=== PATIENT | male | born 1980 | race Two or more races ===

== ENCOUNTER 2021-04-22 04:41 | Emergency (ER) | payer SELFPAY ==
[~2021-04-22] VITALS: Ht 170.2 cm; Wt 80.9 kg
[2021-04-22] MEDS ORDERED: PROPARACAINE HCL 0.5% 15 ML OPHTHALMIC SOLUTION OU ONE (04:45)
[2021-04-22] MEDS ORDERED: FLUORESCEIN SODIUM 1 MG STRIP OD ONE (04:45)
[2021-04-22 04:55] VITALS: BP 127/73
== END 2021-04-22 05:19 | disposition home or self-care (01) ==
LOC: EMS 04:42
DX: H11.423 Conjunctival edema, bilateral (principal)
CPT/HCPCS: 99283